=== PATIENT | female | born 1945 | race Asian ===

== ENCOUNTER 2017-03-04 09:30 | Day surgery (SDC) | payer MEDICARE, OTHER ==
[~2017-03-04] VITALS: Ht 157.5 cm; Wt 40.5 kg
[~2017-03-04 09:30] MED LIST: MULT-1203 PO; MitoMYcin 0.2 MG/VIAL KIT FOR OPHTHALMIC USE OS ONE
[2017-03-04] MEDS ORDERED: TROPICAMIDE 1% 2 ML OPHTHALMIC SOLUTION ONE (10:42)
[2017-03-04] MEDS ORDERED: RINGERS SOLUTION,LACTATED 500 ML IV ONE ×2 (10:42→11:00)
[2017-03-04] MEDS ORDERED: PHENYLEPHRINE HCL 2.5% 2 ML OPHTHALMIC SOLUTION ONE (10:42)
[2017-03-04] MEDS ORDERED: DICLOFENAC SODIUM 0.1% 2.5 ML OPHTHALMIC SOLUTION ONE (10:42)
[2017-03-04] MEDS ORDERED: MOXIFLOXACIN HCL 0.5% 3 ML OPHTHALMIC SOLUTION ONE (10:42)
[2017-03-04] MEDS ORDERED: DICLOFENAC SODIUM 0.1% 2.5 ML OPHTHALMIC SOLUTION OS ONE (11:00)
[2017-03-04] MEDS ORDERED: MOXIFLOXACIN HCL 0.5% 3 ML OPHTHALMIC SOLUTION OS ONE (11:00)
[2017-03-04] MEDS ORDERED: MIDAZOLAM HCL 2 MG/2 ML VIAL IVP ONE (12:00)
[2017-03-04] MEDS ORDERED: FentaNYL CITRATE-PF 100 MCG/2 ML VIAL ONE (12:38)
[2017-03-04] MEDS ORDERED: BALANCED SALT 15 ML OPHTHALMIC IRRIG.SOLN ONE (13:42)
== END 2017-03-04 14:45 | disposition home or self-care (01) ==
LOC: SURGERY 09:30
PROVIDERS: ATTEND Specialist
DX: H11.052 Peripheral pterygium, progressive, left eye (principal); I10 Essential (primary) hypertension; I49.9 Cardiac arrhythmia, unspecified; E78.00 Pure hypercholesterolemia, unspecified; M19.90 Unspecified osteoarthritis, unspecified site; Z98.890 Other specified postprocedural states; Z88.2 Allergy status to sulfonamides; Z91.018 Allergy to other foods
CPT/HCPCS: 65426; 93005; C1768; J2250; J3010; J7120; 88304

== ENCOUNTER 2021-08-07 07:10 | Day surgery (SDC) | payer MEDICARE, OTHER ==
[~2021-08-07] VITALS: Ht 157.5 cm; Wt 42.2 kg
[~2021-08-07 07:10] MED LIST changes: -MitoMYcin 0.2 MG/VIAL KIT FOR OPHTHALMIC USE OS ONE; +RINGERS SOLUTION,LACTATED 500 ML IV ONE
[2021-08-07] MEDS ORDERED: LIDOCAINE/PF 1% 2 ML VIAL IM ONE (07:11)
[2021-08-07] MEDS ORDERED: EPINEPHrine 1:1,000 [1 MG/ML] VIAL IM ONE (07:11)
[2021-08-07] MEDS ORDERED: BALANCED SALT 15 ML OPHTHALMIC IRRIG.SOLN OU ONE (07:11)
[2021-08-07] MEDS ORDERED: TETRACAINE HCL/PF 0.5% 4 ML OPHTHALMIC SOLUTION OU ONE (07:11)
[2021-08-07] MEDS ORDERED: FentaNYL CITRATE PF 100 MCG/2 ML VIAL IVP ONE (07:11)
[2021-08-07] MEDS ORDERED: CHONDR SULF A SOD/HYALURONATE 1.05 ML KIT IO ONE (07:11)
[2021-08-07] MEDS ORDERED: MIDAZOLAM HCL 2 MG/2 ML VIAL IVP ONE (07:11)
[2021-08-07] MEDS ORDERED: POVIDONE-IODINE 10% 15 ML SOLUTION UD TP ONE (07:11)
[2021-08-07] MEDS ORDERED: TROPICAMIDE 1% 2 ML OPHTHALMIC SOLUTION ONE (07:43)
[2021-08-07] MEDS ORDERED: PHENYLEPHRINE HCL 2.5% 2 ML OPHTHALMIC SOLUTION ONE (07:43)
[2021-08-07] MEDS ORDERED: MOXIFLOXACIN HCL 0.5% 3 ML OPHTHALMIC SOLUTION ONE (07:43)
[2021-08-07] MEDS ORDERED: KETOROLAC TROMETHAMINE 0.5% 5 ML OPHTHALMIC SOLUTION ONE (07:43)
[2021-08-07 08:16] LABS: COVID AG,FIA SOURCE NASAL SWAB
[2021-08-07] MEDS: PHENYLEPHRINE HCL 2.5% 2 ML OPHTHALMIC SOLUTION OD SCH ×3 (08:24→08:40)
[2021-08-07] MEDS: KETOROLAC TROMETHAMINE 0.5% 5 ML OPHTHALMIC SOLUTION OD SCH ×3 (08:25→08:40)
[2021-08-07] MEDS: MOXIFLOXACIN HCL 0.5% 3 ML OPHTHALMIC SOLUTION OD SCH ×3 (08:25→08:40)
[2021-08-07] MEDS: TROPICAMIDE 1% 2 ML OPHTHALMIC SOLUTION OD SCH ×3 (08:25→08:40)
== END 2021-08-07 10:00 | disposition home or self-care (01) ==
LOC: SURGERY 07:10
PROVIDERS: ATTEND Ophthalmology
DX: H25.11 Age-related nuclear cataract, right eye (principal); Z98.890 Other specified postprocedural states
CPT/HCPCS: 66984; 87426; C9803; J0171; J2250; J3010; J3490; Q9967; V2632

== ENCOUNTER 2025-01-28 20:31 | Emergency (ER) | payer MEDICARE, OTHER ==
[~2025-01-28] VITALS: Ht 157.5 cm; Wt 40.9 kg
[~2025-01-28 20:31] MED LIST changes: -RINGERS SOLUTION,LACTATED 500 ML IV ONE
[2025-01-28 20:43] VITALS: TEMP 98.2
[2025-01-28 21:11] LABS: PLATELET COUNT (AUTO) 186 K/uL (150-450); RED BLOOD CELL COUNT(AUTO) 4.50 MIL/uL (4.00-5.20); RED CELL DISTRIBUTION WIDTH 13.1 % (11.5-14.5); WHITE BLOOD COUNT (AUTO) 5.0 K/uL (4.5-11.0)
[2025-01-28 21:14] LABS: CALCIUM, TOTAL 9.5 mg/dL (8.8-10.5); CREATININE 0.70 mg/dL (0.60-1.30); GLOMERULAR FILTR. RATE CALC > 60 mL/min (>60); GLUCOSE,RANDOM 101 mg/dL (70-110); SODIUM SERUM 134 mmol/L (136-145); UREA NITROGEN, BLOOD 15 mg/dL (7-18)
[2025-01-28 21:23] LABS: TROPONIN I-HIGH SENSITIVITY 12 ng/L (<51)
[2025-01-28] MEDS: ONDANSETRON HCL 4 MG/2 ML VIAL IVP ONE (22:19)
[2025-01-28 22:34] LABS: APPEARANCE,URINE CLEAR (CLEAR); GLUCOSE, URINE (UA) NEGATIVE (NEGATIVE); LEUKOCYTE ESTERASE ,URINE SMALL (NEGATIVE); NITRATE,URINE NEGATIVE (NEGATIVE); OCCULT BLOOD,URINE NEGATIVE (NEGATIVE); SPECIFIC GRAVITIY, URINE 1.010 (1.003-1.030)
[2025-01-28 22:47] LABS: SQUAMOUS EPITHELIAL CELL,UR Few /LPF (None Seen)
[2025-01-28 23:14] VITALS: BP 120/77; PULSE 82; RESP 20; O2SAT 99
== END 2025-01-29 00:02 | disposition left against medical advice (07) ==
LOC: EMS 20:31
DX: I10 Essential (primary) hypertension (principal); R42 Dizziness and giddiness; Z88.2 Allergy status to sulfonamides; Z79.899 Other long term (current) drug therapy; Z53.29 Procedure and treatment not carried out because of patient's decision for other reasons
CPT/HCPCS: 99285; 96374; 71045; 96375; 80048; 81001; 84484; 85025; 87086; 36415; 93005; J0360; J2405